=== PATIENT | female | born 1975 ===

== ENCOUNTER 2017-03-03 09:52 | Outpatient (CLI) | payer OTHER ==
--- NOTE | 2017-03-03 13:07 | Ultrasound Report ---
TRANSABDOMINAL AND TRANSVAGINAL PELVIC ULTRASOUND: 03/03/17 09:52:00 CLINICAL: Heavy menses. FINDINGS: Transabdominal and transvaginal pelvic ultrasound demonstrated a small fibroid uterus measuring 9.4 x 4.6 x 5.5 cm. A single study total fibroid in the uterine body measures 1.0 x 0.7 x 0.9 cm.The endometrium is normal and measures 10.0 mm AP thickness. Normal ovaries. The right ovary measures 3.2 x 1.5 x 1.5cm. The left ovary measures 2.3 x 1.4 x 1.4cm. No adnexal mass. No free fluid. Normal urinary bladder. IMPRESSION: Small fibroid uterus with a single 1 cm submucosal fibroid. Normal endometrium and normal ovaries.
--- NOTE | 2017-03-03 14:32 | Mammography Report ---
BILATERAL DIGITAL SCREENING MAMMOGRAM with CAD: 03/03/17 09:52:00 CLINICAL: Routine screening. COMPARISON: None available. FINDINGS: There are bilateral scattered areas of fibroglandular density.No mass, architectural distortion or suspicious calcifications. IMPRESSION: No mammographic evidence of malignancy. BI-RADS CATEGORY: 1 -- Negative RECOMMENDATION: Routine mammographic screening in one year. COMMENT: Patient follow-up letters are generated by our [employer] application.
== END 2017-03-03 09:53 | disposition home or self-care (01) ==
LOC: SPVWC 09:52
PROVIDERS: ATTEND Family Medicine
DX: Z12.31 Encounter for screening mammogram for malignant neoplasm of breast (principal); D25.0 Submucous leiomyoma of uterus
CPT/HCPCS: 76830; 76856; G0202; 77067